=== PATIENT | female | born 1980 | race African-American/Black ===

== ENCOUNTER 2019-01-08 13:14 | Emergency (ER) | payer SELFPAY ==
[~2019-01-08] VITALS: Ht 165.1 cm; Wt 124.1 kg
[2019-01-08] MEDS ORDERED: ASPI81 PO (14:38)
[2019-01-08] MEDS ORDERED: LIDOCAINE 5% TRANSDERMAL PATCH TD ONE (17:00)
[2019-01-08] MEDS ORDERED: IBUPROFEN 800 MG TABLET PO ONE (18:00)
[2019-01-08] MEDS ORDERED: METHOCARBAMOL 500 MG TABLET PO ONE (18:00)
[2019-01-08 19:42] VITALS: BP 142/80
== END 2019-01-08 19:47 | disposition home or self-care (01) ==
LOC: EMS 13:14
DX: S79.911A Unspecified injury of right hip, initial encounter (principal); S59.901A Unspecified injury of right elbow, initial encounter; R03.0 Elevated blood-pressure reading, without diagnosis of hypertension; F17.210 Nicotine dependence, cigarettes, uncomplicated; F12.90 Cannabis use, unspecified, uncomplicated; Z79.82 Long term (current) use of aspirin; V49.9XXA Car occupant (driver) (passenger) injured in unspecified traffic accident, initial encounter; Y93.89 Activity, other specified; Y92.89 Other specified places as the place of occurrence of the external cause; Y99.8 Other external cause status
CPT/HCPCS: 73502

== ENCOUNTER 2025-04-26 14:02 | Inpatient (IN) | payer OTHER ==
[~2025-04-26] VITALS: Ht 162.6 cm; Wt 128.6 kg
[~2025-04-26 14:02] MED LIST: ASPI-1450 PO
[2025-04-26] MEDS ORDERED: HYDR12.54 PO (14:10)
[2025-04-26 14:35] LABS: PLATELET COUNT (AUTO) 414 K/uL (150-450); RED BLOOD CELL COUNT(AUTO) 4.58 MIL/uL (4.00-5.20); RED CELL DISTRIBUTION WIDTH 14.2 % (11.5-14.5); WHITE BLOOD COUNT (AUTO) 9.8 K/uL (4.5-11.0)
[2025-04-26 14:55] LABS: CALCIUM, TOTAL 9.0 mg/dL (8.8-10.5); CREATININE 0.95 mg/dL (0.60-1.30); GLOMERULAR FILTR. RATE CALC > 60 mL/min (>60); GLUCOSE,RANDOM 176 mg/dL (70-110); SODIUM SERUM 137 mmol/L (136-145); UREA NITROGEN, BLOOD 8 mg/dL (7-18)
[2025-04-26 15:00] LABS: APPEARANCE,URINE HAZY (CLEAR); GLUCOSE, URINE (UA) NEGATIVE (NEGATIVE); LEUKOCYTE ESTERASE ,URINE SMALL (NEGATIVE); NITRATE,URINE NEGATIVE (NEGATIVE); OCCULT BLOOD,URINE LARGE (NEGATIVE); SPECIFIC GRAVITIY, URINE 1.014 (1.003-1.030)
[2025-04-26 15:00] LABS: TROPONIN I-HIGH SENSITIVITY 9 ng/L (<51)
[2025-04-26 15:08] LABS: SQUAMOUS EPITHELIAL CELL,UR Few /LPF (None Seen)
[2025-04-26] MEDS ORDERED: ONDANSETRON HCL 4 MG/2 ML VIAL IVP PRN (17:00)
[2025-04-26] MEDS ORDERED: ZOLPIDEM TARTRATE 5 MG TABLET PO PRN (17:00)
[2025-04-26] MEDS ORDERED: SODIUM CHLORIDE 0.9% 100 ML ONE (18:10)
[2025-04-26] MEDS ORDERED: IOHEXOL 350 MG/ML 100 ML VIAL ONE (18:10)
[2025-04-26] MEDS ORDERED: 0.9% SODIUM CHLORIDE 10 ML SYRINGE IVP ONE (18:10)
[2025-04-26] MEDS: NITROGLYCERIN 2% (1 GM=INCH) OINTMENT PACKET TP ONE (18:14)
[2025-04-26] MEDS: ASPIRIN 325 MG TABLET PO ONE (18:14)
[2025-04-26 18:33] LABS: TROPONIN I-HIGH SENSITIVITY 7 ng/L (<51)
[2025-04-26] MEDS: CefTRIAXone 1 GM/DEXTROSE 50 ML IV SCH (18:40)
[2025-04-26] MEDS: LABETALOL HCL 5 MG/ML 20 ML VIAL IVP ONE (18:41)
[2025-04-26] MEDS: DOCUSATE SODIUM 100 MG CAPSULE PO SCH (21:00)
[2025-04-26] MEDS: ACETAMINOPHEN 325 MG TABLET PO PRN (21:42)
[2025-04-26] MEDS: FAMOTIDINE 20 MG TABLET PO SCH (21:42)
[2025-04-27 01:23] VITALS: BP 145/83; PULSE 96; RESP 20; TEMP 97.9; O2SAT 98
[2025-04-27 04:00] VITALS: BP 149/80; PULSE 82; RESP 18; TEMP 98.2; O2SAT 97
[2025-04-27 07:34] VITALS: BP 150/91; PULSE 80; RESP 18; TEMP 98.2; O2SAT 98
[2025-04-27] MEDS: ASPIRIN 81 MG CHEWABLE TABLET PO SCH (08:40)
[2025-04-27] MEDS ORDERED: AMLO-258 PO (10:28)
[2025-04-27] MEDS ORDERED: LOSA-381 PO (10:29)
[2025-04-27] MEDS ORDERED: CIPR250T6 PO (10:30)
[2025-04-27] MEDS: LOSARTAN POTASSIUM 25 MG TABLET PO SCH (11:14)
[2025-04-27 11:37] VITALS: BP 163/82; PULSE 77; RESP 18; TEMP 98.2; O2SAT 97
[2025-04-27 15:40] VITALS: BP 159/77; PULSE 81; RESP 18; TEMP 98.2; O2SAT 99
[2025-04-27 16:03] VITALS: BP 152/83; RESP 18
== END 2025-04-27 16:00 | disposition home or self-care (01) | DRG 199 ==
LOC: EMS 14:02 → EDH 16:47 → 5S 04-27 01:02
PROVIDERS: ADMIT Internal Medicine; ATTEND Internal Medicine
DX: I16.1 Hypertensive emergency (principal); E66.2 Morbid (severe) obesity with alveolar hypoventilation; F17.200 Nicotine dependence, unspecified, uncomplicated; I10 Essential (primary) hypertension; F12.90 Cannabis use, unspecified, uncomplicated; Z86.711 Personal history of pulmonary embolism; Z68.42 Body mass index [BMI] 45.0-49.9, adult
CPT/HCPCS: 71045; 71275; 76705; 80048; 81001; 83690; 84484; 84703; 85025; 87086; 93005; 93306; 96365; 96375; 99291; G0378; J0696; J3490; J7050; 36415-L1; 36415-TC